=== PATIENT | female | born 1975 | race Caucasian/White ===

== ENCOUNTER → 2017-02-13 | Outpatient (CLI) | payer MEDICAID ==
[2017-02-13 08:47] LABS: HEMATOCRIT 38.4 % (36.0-47.0); HEMOGLOBIN 12.9 g/dL (12.0-15.5); HGB HCT DIFFERENCE 0.3; MEAN CORPUSCULAR HGB CONC 33.5 g/dL (32.0-36.0); MEAN CORPUSCULAR VOLUME 95 fl (80-97); RED BLOOD COUNT 4.02 10^6/uL (3.72-5.28); RED CELL DISTRIBUTION WIDTH 14.9 % (11.5-14.0); WHITE BLOOD COUNT 11.7 10^3/uL (4.0-10.5)
[2017-02-13 09:11] LABS: ANION GAP 11 (5-19); BLOOD UREA NITROGEN 27 mg/dL (7-20); CALCIUM 10.2 mg/dL (8.4-10.2); CARBON DIOXIDE 28 mmol/L (22-30); CHLORIDE 96 mmol/L (98-107); CHOLESTEROL 150.69 mg/dL (0-200); CREATININE RESULT 1.34 mg/dL (0.52-1.25); Direct HDL 53 mg/dL (>40); GLUCOSE 212 mg/dL (75-110); SODIUM 135.3 mmol/L (137-145); TRIGLYCERIDES 155 mg/dL (<150)
[2017-02-13 09:22] LABS: DIRECT LDL 69 mg/dL (<100)
== END ==
LOC: OD 07:43
DX: F31.4 Bipolar disorder, current episode depressed, severe, without psychotic features (principal); Z79.899 Other long term (current) drug therapy
CPT/HCPCS: 36415; 80048; 80061; 83036; 84439; 84443; 85027